=== PATIENT | male | born 1980 | race Caucasian/White ===

== ENCOUNTER 2023-01-30 09:27 | Emergency (ER) | payer BC ==
[~2023-01-30] VITALS: Ht 190.5 cm; Wt 89.4 kg
[2023-01-30] MEDS ORDERED: NEOM10DR11 RIGHT EAR (09:45)
[2023-01-30] MEDS ORDERED: BUPR300T52 PO (09:48)
--- NOTE | 2023-01-30 09:53 | NUR ---
PT WAS EVALUATED BY DR CLEMENS. PT WAS D/C'd TO HOME. D/C INSTRUCTIONS GIVEN TO THE PT BY DR CLEMENS.
[2023-01-30 09:57] VITALS: BP 131/74
== END 2023-01-30 09:58 | disposition home or self-care (01) ==
LOC: ER 09:27
DX: H60.91 Unspecified otitis externa, right ear (principal); Z79.2 Long term (current) use of antibiotics
CPT/HCPCS: A4663